=== PATIENT | male | born 1995 | race Two or more races ===

== ENCOUNTER 2018-05-03 19:39 | Emergency (ER) | payer SELFPAY ==
[~2018-05-03] VITALS: Ht 177.8 cm; Wt 93.3 kg
[2018-05-03 19:48] VITALS: BP 146/90
== END 2018-05-03 21:38 | disposition home or self-care (01) ==
LOC: ED 21:28
DX: M79.661 Pain in right lower leg (principal)
CPT/HCPCS: 99284